=== PATIENT | female | born 1995 | race Caucasian/White ===

== ENCOUNTER 2017-07-19 10:45 | Emergency (ER) | payer BC, MEDICAID ==
[2017-07-19 11:38] LABS: BASO % 0.2 % (0-6); EOS % 0.6 % (0-6); GRAN % 69.3 % (47-80); HEMATOCRIT 39.7 % (35.0-47.0); HEMOGLOBIN 13.4 gm/dl (11.6-16.0); LYMPH % 21.9 % (16-45); MEAN CELL VOLUME 81.5 fl (81-97); MEAN CORPUSCULAR HEMOGLOBIN 27.5 pg (27-33); MEAN CORPUSCULAR HGB CONC 33.8 g/dl (32-36); MEAN PLATELET VOLUME 10.3 fl (7.4-10.4); PLATELET COUNT 214 K/uL (130-400); RED BLOOD COUNT 4.87 M/uL (3.80-5.40); RED CELL DISTRIBUTION WIDTH 13.2 % (11.5-14.5); WHITE BLOOD COUNT W/O DIFF 8.4 K/uL (4.2-12.2)
[2017-07-19 11:48] LABS: BLOOD UREA NITROGEN 10 mg/dL (6-20); CREATININE 0.7 mg/dL (0.5-0.9); EST GLOMERULAR FILTRATION RATE > 60 mL/min
[2017-07-19 11:51] LABS: GLUCOSE,RANDOM 91 mg/dL (74-109)
--- NOTE | 2017-07-19 14:06 | Emergency Department Record ---
History of Present Illness - General Chief Complaint: General Stated Complaint: POST SURGICAL INFECTION Time Seen by Provider: 07/19/17 10:54 Source: Patient Mode of Arrival: Ambulatory Limitations: No limitations - History of Present Illness Initial Comments: pt had ovary removed 1 wk ago and now has drainage from it. she had it done at [facility] no fever MD Complaint: Abdominal pain Location: Suprapubic Severity: Mild Context: Recent surgery/procedure Associated Symptoms: Denies other symptoms - Related Data Patient : No Home Medications Medication Instructions Recorded Confirmed Last Taken No Home Med [NO HOME MEDS] 07/19/17 07/19/17 Unknown Allergies Allergy/AdvReac Type Severity Reaction Status Date / Time Sulfa (Sulfonamide Allergy HIVES Verified 07/19/17 11:03 Antibiotics) Travel Screening - Travel/Exposure Within Last 30 Days Have you traveled within the last 30 days?: No Review of Systems Reviewed: No additional complaints except as noted below Constitutional: Reports: As per HPI. Denies: Chills, Fever, Malaise, Night sweats, Weakness, Weight change Eyes: Reports: As per HPI. Denies: Eye discharge, Eye pain, Photophobia, Vision change ENT: Reports: As per HPI. Denies: Congestion, Dental pain, Ear pain, Epistaxis , Hearing loss, Throat pain Respiratory: Reports: As per HPI. Denies: Cough, Dyspnea, Hemoptysis, Stridor, Wheezes Cardiovascular: Reports: As per HPI. Denies: Arrhythmia, Chest pain, Dyspnea on exertion, Edema, Murmurs, Orthopnea, Palpitations, Paroxysmal nocturnal dyspnea, Rheumatic Fever, Syncope Endocrine: Reports: As per HPI. Denies: Fatigue, Heat or cold intolerance, Polydipsia, Polyuria Gastrointestinal: Reports: As per HPI. Denies: Abdominal pain, Constipation, Diarrhea, Hematemesis, Hematochezia, Melena, Nausea, Vomiting Genitourinary: Reports: As per HPI. Denies: Abnormal menses, Discharge, Dyspareunia, Dysuria, Frequency, Hematuria, Incontinence, Retention, Urgency Musculoskeletal: Reports: As per HPI. Denies: Arthralgia, Back pain, Gout, Joint swelling, Myalgia, Neck pain Skin: Reports: As per HPI. Denies: Bruising, Change in color, Change in hair/ nails, Lesions, Pruritus, Rash Neurological: Reports: As per HPI. Denies: Abnormal gait, Confusion, Headache, Numbness, Paresthesias, Seizure, Tingling, Tremors, Vertigo, Weakness Psychiatric: Reports: As per HPI. Denies: Anxiety, Auditory hallucinations, Depression, Homicidal thoughts, Suicidal thoughts, Visual hallucinations Hematological/Lymphatic: Reports: As per HPI. Denies: Anemia, Blood Clots, Easy bleeding, Easy bruising, Swollen glands Past Medical History - SOCIAL HISTORY Smoking Status: Never smoker Alcohol Use: None Drug Use: None - RESPIRATORY Hx Respiratory Disorders: No - CARDIOVASCULAR Hx Cardio Disorders: No - NEURO Hx Neuro Disorders: No - GI Hx GI Disorders: Yes Hx Abdominal Pain: Yes - Hx Genitourinary Disorders: No - ENDOCRINE Hx Endocrine Disorders: No - MUSCULOSKELETAL Hx Musculoskeletal Disorders: No - PSYCH Hx Psych Problems: No - HEMATOLOGY/ONCOLOGY Hx Hematology/Oncology Disorders: No Family Medical History Any Significant Family History?: No Physical Exam - General General Appearance: Alert, Oriented x3, Cooperative, Mild distress - Head Head exam: Normal inspection - Eye Eye exam: Normal appearance, PERRL, EOMI Pupils: Normal accommodation - ENT ENT exam: Normal exam, Mucous membranes moist, Normal external ear exam, Normal orophraynx Ear exam: Normal external inspection. negative: External canal tenderness Nasal Exam: Normal inspection. negative: Discharge, Sinus tenderness Mouth exam: Normal external inspection, Tongue normal Teeth exam: Normal inspection. negative: Dental caries Throat exam: Normal inspection. negative: Tonsillar erythema, Tonsillar exudate - Neck Neck exam: Normal inspection, Full ROM. negative: Tenderness - Respiratory Respiratory exam: Normal lung sounds bilaterally. negative: Respiratory distress - Cardiovascular Cardiovascular Exam: Regular rate, Normal rhythm, Normal heart sounds - GI/Abdominal GI/Abdominal exam: Soft, Normal bowel sounds, Tenderness, Other (healiong laceration, no erythema and no drainage at this time) - Rectal Rectal exam: Deferred - exam: Deferred - Extremities Extremities exam: Normal inspection, Full ROM, Normal capillary refill. negative: Tenderness - Back Back exam: Reports: Normal inspection, Full ROM. Denies: Muscle spasm, Rash noted, Tenderness - Neurological Neurological exam: Alert, CN II-XII intact, Normal gait, Oriented X3 - Psychiatric Psychiatric exam: Normal affect, Normal mood - Skin Skin exam: Dry, Intact, Normal color, Warm Course Vital Signs 07/19/17 10:53 Temperature 98.0 F Pulse Rate 90 Respiratory 18 Rate Blood Pressure 141/101 Pulse Ox 100 - Reevaluation(s) Reevaluation #1: 07/19/17 14:05 d/w dr mcginnis who stated to have pt f/u with him and make no changes 07/19/17 14:06 Medical Decision Making - Lab Data Result diagrams: 07/19/17 11:30 07/19/17 11:30 Lab Results 07/19/17 07/19/17 Range/Units 11:30 11:30 WBC 8.4 (4.2-12.2) K/uL RBC 4.87 (3.80-5.40) M/uL Hgb 13.4 (11.6-16.0) gm/dl Hct 39.7 (35.0-47.0) % MCV 81.5 (81-97) fl MCH 27.5 (27-33) pg MCHC 33.8 (32-36) g/dl RDW 13.2 (11.5-14.5) % Plt Count 214 (130-400) K/uL MPV 10.3 (7.4-10.4) fl Gran % 69.3 (47-80) % Lymphocytes % 21.9 (16-45) % Monocytes % 8.0 (0-9) % Eosinophils % 0.6 (0-6) % Basophils % 0.2 (0-6) % Sodium 137 (136-145) mmol/L Potassium 4.2 (3.4-4.5) mmol/L Chloride 99 (98-107) mmol/L Carbon Dioxide 28.0 (22-29) mmol/L Anion Gap 10.0 (7-16) BUN 10 (6-20) mg/dL Creatinine 0.7 (0.5-0.9) mg/dL Estimated GFR > 60 mL/min Random Glucose 91 (74-109) mg/dL Calcium 9.3 (8.6-10.0) mg/dL Disposition Disposition: Discharge Clinical Impression: Seroma after procedure Disposition: Home, Self-Care Condition: (1) Good Instructions: Wound Dehiscence (ED) Additional Instructions: follow up with surgeon. keep wound clean. return sooner if worse Quality - Quality Measures Quality Measures: N/A - Blood Pressure Screening Does Patient Have Any of the Following: No Blood Pressure Classification: Hypertensive Reading Systolic Measurement: 141 Diastolic Measurement: 101 Screening for High Blood Pressure: < First Hypertensive BP, F/U Documented > [ G8950] First Hypertensive Follow-up Interventions: Follow-up with rescreen GT 1 day and LT 4 weeks.
--- NOTE | 2017-07-20 11:08 | CT SCAN REPORT ---
EXAM: CT OF THE ABDOMEN AND PELVIS WITHOUT CONTRAST HISTORY: PATIENT HAD LEFT OVARIAN MASS REMOVED ONE WEEK AGO ELSEWHERE, NOW HAVING PAIN WITH ODOROUS DISCHARGE FROM SURGICAL SITE, POSTOP INFECTION SUSPECTED. PATHOLOGY REPORT FOR THE RESECTED LEFT OVARIAN MASS IS STILL PENDING CURRENTLY. TECHNIQUE: Axial CT scan of the abdomen and pelvis was performed without oral or IV contrast. Comparison: CT of the abdomen and pelvis dated 06/20/12. FINDINGS: No calcified gallstones are seen within the gallbladder. No intrarenal calculi identified on either side. No hydronephrosis or hydroureter is seen on either side. No definite ureteral calculus seen in either side and no bladder calculus evident. There is a small amount of air in the urinary bladder which is nonspecific although could be related to recent catheterization and clinical correlation is suggested. Evaluation of the bowel and viscera is very limited without oral or IV contrast. Given this limitation, no definite hepatic, splenic, adrenal, pancreatic, or renal mass identified. The left ovary is not clearly identified consistent with the surgical history. There is some minor streaky soft tissue density in the left adnexal region which may just be some postoperative scarring. There is some hazy density in the subcutaneous tissues of the low anterior abdominal wall which may also be postoperative in nature and there is a small more confluent area in the subcutaneous tissues measuring about 3.3 cm in transverse x 1.2 cm in AP diameter that has a CT density of 10 and may be a small fluid collection. No air is seen within this collection, but a small abscess or seroma would be possible with this appearance. There is some bibasilar linear fibrosis or discoid atelectasis. Small periumbilical anterior abdominal wall hernia containing adipose tissue, but no bowel. No free intraperitoneal air or free intraperitoneal fluid evident. IMPRESSION: 1. POSTOP LEFT OVARIAN RESECTION BY HISTORY APPROXIMATELY ONE WEEK AGO. MINOR STREAKY SOFT TISSUE IN THE LEFT ADNEXAL REGION MAY JUST BE POSTOPERATIVE IN NATURE. 2. FINDINGS IN THE LOW ANTERIOR ABDOMINAL WALL SUBCUTANEOUS TISSUES MAY REPRESENT A SMALL SEROMA OR ABSCESS, ALTHOUGH NO ASSOCIATED AIR BUBBLES ARE SEEN. 3. SMALL AMOUNT OF AIR IN THE URINARY BLADDER IS NONSPECIFIC ALTHOUGH MAY BE RELATED TO RECENT CATHETERIZATION. JOB NUMBER: [id number] [facility]
== END 2017-07-19 14:16 | disposition home or self-care (01) ==
LOC: ER 10:45
DX: N99.842 Postprocedural seroma of a genitourinary system organ or structure following a genitourinary system procedure (principal)
CPT/HCPCS: 74176; 80048; 85025; 99283; 99284

== ENCOUNTER 2017-10-20 21:36 | Emergency (ER) | payer MEDICAID ==
--- NOTE | 2017-10-20 22:49 | Emergency Department Record ---
History of Present Illness - General Chief complaint: Extremity Problem Stated complaint: LT HAND PAIN MARIA DOLORES BASS Time Seen by Provider: 10/20/17 22:22 Source: Patient Mode of Arrival: Ambulatory Limitations: No limitations - History of Present Illness Initial comments: pt hit a door and injured her left hand Complaint: Extremity pain Onset/Timin -: Hour(s) Location: Left, Hand Severity scale (1-10): 9 Associated Symptoms: Denies other symptoms - Related Data Allergies Allergy/AdvReac Type Severity Reaction Status Date / Time Sulfa (Sulfonamide Allergy HIVES Verified 07/19/17 11:03 Antibiotics) sulfamethoxazole Allergy HIVES Verified 10/20/17 22:04 [From Bactrim] trimethoprim [From Bactrim] Allergy HIVES Verified 10/20/17 22:04 Travel Screening - Travel/Exposure Within Last 30 Days Have you traveled within the last 30 days?: No - Travel/Exposure Within Last Year Have you traveled outside the [place] in the last year?: No - Additonal Travel Details Have you been exposed to anyone with a communicable illness?: No - Travel Symptoms Symptom Screening: None Review of Systems Reviewed: No additional complaints except as noted below Constitutional: Reports: As per HPI. Denies: Chills, Fever, Malaise, Night sweats, Weakness, Weight change Eyes: Reports: As per HPI. Denies: Eye discharge, Eye pain, Photophobia, Vision change ENT: Reports: As per HPI. Denies: Congestion, Dental pain, Ear pain, Epistaxis , Hearing loss, Throat pain Respiratory: Reports: As per HPI. Denies: Cough, Dyspnea, Hemoptysis, Stridor, Wheezes Cardiovascular: Reports: As per HPI. Denies: Arrhythmia, Chest pain, Dyspnea on exertion, Edema, Murmurs, Orthopnea, Palpitations, Paroxysmal nocturnal dyspnea, Rheumatic Fever, Syncope Endocrine: Reports: As per HPI. Denies: Fatigue, Heat or cold intolerance, Polydipsia, Polyuria Gastrointestinal: Reports: As per HPI. Denies: Abdominal pain, Constipation, Diarrhea, Hematemesis, Hematochezia, Melena, Nausea, Vomiting Genitourinary: Reports: As per HPI. Denies: Abnormal menses, Discharge, Dyspareunia, Dysuria, Frequency, Hematuria, Incontinence, Retention, Urgency Musculoskeletal: Reports: As per HPI. Denies: Arthralgia, Back pain, Gout, Joint swelling, Myalgia, Neck pain Skin: Reports: As per HPI. Denies: Bruising, Change in color, Change in hair/ nails, Lesions, Pruritus, Rash Neurological: Reports: As per HPI. Denies: Abnormal gait, Confusion, Headache, Numbness, Paresthesias, Seizure, Tingling, Tremors, Vertigo, Weakness Psychiatric: Reports: As per HPI. Denies: Anxiety, Auditory hallucinations, Depression, Homicidal thoughts, Suicidal thoughts, Visual hallucinations Hematological/Lymphatic: Reports: As per HPI. Denies: Anemia, Blood Clots, Easy bleeding, Easy bruising, Swollen glands Past Medical History - SOCIAL HISTORY Smoking Status: Never smoker Alcohol Use: None Drug Use: None - RESPIRATORY Hx Respiratory Disorders: No - CARDIOVASCULAR Hx Cardio Disorders: No - NEURO Hx Neuro Disorders: No - GI Hx GI Disorders: Yes Hx Abdominal Pain: Yes - Hx Genitourinary Disorders: No - ENDOCRINE Hx Endocrine Disorders: No - MUSCULOSKELETAL Hx Musculoskeletal Disorders: No - PSYCH Hx Psych Problems: No - HEMATOLOGY/ONCOLOGY Hx Hematology/Oncology Disorders: Yes Hx Cancer: Yes ("pre-ovarian") Hx Chemotherapy: No Hx Radiation Therapy: No Family Medical History Any Significant Family History?: No Physical Exam - General General Appearance: Alert, Oriented x3, Cooperative, Mild distress - Head Head exam: Normal inspection - Eye Eye exam: Normal appearance, PERRL, EOMI Pupils: Normal accommodation - ENT ENT exam: Normal exam, Mucous membranes moist, Normal external ear exam, Normal orophraynx Ear exam: Normal external inspection. negative: External canal tenderness Nasal Exam: Normal inspection. negative: Discharge, Sinus tenderness Mouth exam: Normal external inspection, Tongue normal Teeth exam: Normal inspection. negative: Dental caries Throat exam: Normal inspection. negative: Tonsillar erythema, Tonsillar exudate - Neck Neck exam: Normal inspection, Full ROM. negative: Tenderness - Respiratory Respiratory exam: Normal lung sounds bilaterally. negative: Respiratory distress - Cardiovascular Cardiovascular Exam: Regular rate, Normal rhythm, Normal heart sounds - GI/Abdominal GI/Abdominal exam: Soft, Normal bowel sounds. negative: Tenderness - Rectal Rectal exam: Deferred - exam: Deferred - Extremities Extremities exam: Normal inspection, Full ROM, Normal capillary refill, Tenderness Image of Hand: 1 - tender - Back Back exam: Reports: Normal inspection, Full ROM. Denies: Muscle spasm, Rash noted, Tenderness - Neurological Neurological exam: Alert, CN II-XII intact, Normal gait, Oriented X3 - Psychiatric Psychiatric exam: Normal affect, Normal mood - Skin Skin exam: Dry, Intact, Normal color, Warm Course Vital Signs 10/20/17 21:56 Pulse Rate 100 H Respiratory 20 Rate Blood Pressure 136/71 Pulse Ox 99 Disposition Disposition: Discharge Clinical Impression: Contusion Qualifiers: Encounter type: initial encounter Contusion area: hand Laterality: left Qualified Code(s): S60.222A - Contusion of left hand, initial encounter Disposition: Home, Self-Care Condition: (1) Good Additional Instructions: follow up with family doctor. return sooner if worse. ice and elevate. Quality - Quality Measures Quality Measures: N/A - Blood Pressure Screening Does Patient Have Any of the Following: No Blood Pressure Classification: Pre-Hypertensive BP Reading Systolic Measurement: 136 Diastolic Measurement: 71 Screening for High Blood Pressure: < Pre-Hypertensive BP, F/U Documented > [ G8950] Pre-Hypertensive Follow-up Interventions: Follow-up with rescreen every year.
--- NOTE | 2017-10-22 09:37 | RADIOLOGY REPORT ---
EXAM: LEFT HAND HISTORY: LEFT LATERAL HAND PAIN AFTER STRIKING A DOOR WITH LEFT HAND. TECHNIQUE: Three views of the left hand were obtained. Comparison: None. Encounter: Initial. FINDINGS: The left hand appears intact with no definite fracture of the left hand identified. No dislocation is seen. No prominent focal soft tissue swelling evident. IMPRESSION: NO DEFINITE FRACTURE OF THE LEFT HAND IDENTIFIED. JOB NUMBER: [id number] [facility]
== END 2017-10-20 22:56 | disposition home or self-care (01) ==
LOC: ER 21:36
DX: S60.222A Contusion of left hand, initial encounter (principal); W22.8XXA Striking against or struck by other objects, initial encounter
CPT/HCPCS: 99283

== ENCOUNTER 2018-01-31 13:50 | Emergency (ER) | payer MEDICAID ==
[2018-01-31] MEDS ORDERED: KETOROLAC 30 MG/ML VIAL IVP ONE (14:09)
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
[2018-01-31] MEDS ORDERED: 0.9 % SODIUM CHLORIDE 1,000 ML BAG IV ONE (14:21)
[2018-01-31 14:30] LABS: BASO % 0.2 % (0-6); EOS % 0.5 % (0-6); GRAN % 74.2 % (47-80); HEMATOCRIT 39.5 % (35.0-47.0); HEMOGLOBIN 13.1 gm/dl (11.6-16.0); LYMPH % 17.3 % (16-45); MEAN CELL VOLUME 81.4 fl (81-97); MEAN CORPUSCULAR HGB CONC 33.2 g/dl (32-36); MEAN PLATELET VOLUME 10.3 fl (7.4-10.4); MONO % 7.8 % (0-9); PLATELET COUNT 224 K/uL (130-400); RED BLOOD COUNT 4.85 M/uL (3.80-5.40); RED CELL DISTRIBUTION WIDTH 13.5 % (11.5-14.5); WHITE BLOOD COUNT W/O DIFF 9.1 K/uL (4.2-12.2)
[2018-01-31 14:44] LABS: BLOOD UREA NITROGEN 8 mg/dL (6-20); CREATININE 0.8 mg/dL (0.5-0.9); EST GLOMERULAR FILTRATION RATE > 60 mL/min
[2018-01-31 14:47] LABS: GLUCOSE,RANDOM 94 mg/dL (74-109)
[2018-01-31 14:50] LABS: CREATINE PHOSPHOKINASE 91 U/L (26-192)
[2018-01-31 14:51] LABS: CKMB < 1.0 ng/mL (<3.77)
[2018-01-31] MEDS ORDERED: ACETAMINOPHEN 325 MG TAB PO ONE (15:26)
--- NOTE | 2018-02-02 12:25 | CT SCAN REPORT ---
EXAM: CT OF THE BRAIN WITHOUT CONTRAST HISTORY: INJURY. TECHNIQUE: Sequential axial images were obtained from the foramen magnum to the vertex without contrast administration. FINDINGS: The brain volume is normal. No large territorial infarct, hemorrhage , mass effect or midline shift. No extraaxial fluid collection. The orbits, paranasal sinuses and mastoid air cells are normal. IMPRESSION: NO ACUTE INTRACRANIAL ABNORMALITY IS APPRECIATED. JOB NUMBER: [id number] [facility]
--- NOTE | 2018-02-02 12:28 | CT SCAN REPORT ---
EXAM: CT OF THE CERVICAL SPINE WITHOUT CONTRAST HISTORY: INJURY. TECHNIQUE: Sequential axial images were obtained through the cervical spine without intravenous contrast administration. Sagittal and coronal reformatted images were performed. FINDINGS: No evidence of fracture, subluxation or perched facet. The visualized lung apices are normal. The paraspinal musculature appears normal. IMPRESSION: NEGATIVE CT EXAMINATION OF THE CERVICAL SPINE. JOB NUMBER: [id number] [facility]
--- NOTE | 2018-02-02 12:29 | RADIOLOGY REPORT ---
EXAM: CHEST HISTORY: INJURY. TECHNIQUE: Frontal and lateral views of the chest were performed. FINDINGS: The heart size is normal. The lung pope are clear. No infiltrate or pleural effusion. The osseous structures are normal. IMPRESSION: NEGATIVE CHEST EXAMINATION. JOB NUMBER: [id number] [facility]
== END 2018-01-31 17:27 | disposition home or self-care (01) ==
LOC: ER 13:50
DX: R07.89 Other chest pain (principal); R55 Syncope and collapse; R20.0 Anesthesia of skin; R51 Headache
CPT/HCPCS: 70450; 71046; 72125; 80048; 82550; 82553; 84484; 84703; 85025; 93005; 93010; 96361; 96374; 99284; J1885; J7030